=== PATIENT | male | born 1960 | race Caucasian/White ===

== ENCOUNTER → 2019-12-14 | Outpatient (CLI) | payer OTHER ==
[~2019-12-14] MED LIST: ACETAMINOPHEN325 M1 PO; ADVIL200 M1 PO; CONCERTA54 MG PO; SEROQUEL25 MG PO
[2019-12-14 15:43] LABS: BASOPHILS % 0.7 % (0.0-1.0); EOSINOPHILS # (AUTO) 0.1 (0.0-0.4); EOSINOPHILS % 1.7 % (0.0-6.0); HEMATOCRIT 37.7 % (38.2-49.6); HEMOGLOBIN 12.8 g/dL (14.0-18.0); LYMPHOCYTES # (AUTO) 1.2 (1.0-3.2); LYMPHOCYTES % 22.5 % (18.0-39.1); MEAN CORPUSCULAR HEMOGLOBIN 33.2 pg (28-32); MEAN CORPUSCULAR VOLUME 97.9 fL (81-99); MONOCYTES # (AUTO) 0.5 (0.2-0.8); MONOCYTES % 8.3 % (4.4-11.3); NEUTROPHILS # (AUTO) 3.6 (2.1-6.9); NEUTROPHILS % 66.4 % (38.7-80.0); PLATELET COUNT 236 x10e3/uL (140-360); RED BLOOD COUNT 3.85 x10e6/uL (4.3-5.7); RED CELL DISTRIBUTION WIDTH 15.1 % (11.7-14.4)
[2019-12-14 16:03] LABS: ALANINE AMINOTRANSFERASE 19 IU/L (0-55); ALBUMIN 3.9 g/dL (3.5-5.0); ALBUMIN/GLOBULIN RATIO 1.3 (0.8-2.0); ALKALINE PHOSPHATASE 46 IU/L (40-150); ANION GAP 12.2 mmol/L (8-16); BLOOD UREA NITROGEN 6 mg/dL (7-26); BUN/CREATININE RATIO 8 (6-25); CALCIUM 9.4 mg/dL (8.4-10.2); CARBON DIOXIDE 23 mmol/L (22-29); CHLORIDE 101 mmol/L (98-107); CREATININE, SERUM 0.78 mg/dL (0.72-1.25); EST GLOMERULAR FILTRATION RATE > 60 ML/MIN (60-); GLUCOSE 82 mg/dL (74-118); POTASSIUM 4.2 mmol/L (3.5-5.1); SODIUM 132 mmol/L (136-145)
== END ==
LOC: WCC 03:00
PROVIDERS: ATTEND Podiatrist Foot & Ankle Surgery
DX: T81.31XA Disruption of external operation (surgical) wound, not elsewhere classified, initial encounter (principal); S91.309A Unspecified open wound, unspecified foot, initial encounter; I73.89 Other specified peripheral vascular diseases; W45.0XXA Nail entering through skin, initial encounter
CPT/HCPCS: 36415; 80053; 83036; 84134; 85025; 85651; 86140

== ENCOUNTER → 2019-12-29 | Day surgery (SDC) | payer OTHER ==
[~2019-12-29] MED LIST changes: +BACITRACIN 50,000 UNIT VIAL ONE; +BUPIVACAINE HCL 0.5% INJ 30 ML VIAL INJ ONE; +CEFAZOLIN SOD 1 GM/NS 50ML 100 ML IV ONE; +DEXAMETHASONE SOD PHOS INJ 4 MG/ML VIAL ONE; +FENTANYL CITRATE/PF 100MCG/2 ML INJ IV ONE; +FENTANYL CITRATE/PF 100MCG/2 ML INJ ONE; +HYDROCODONE/APAP 5MG-325MG TAB ONE; +HYDROMORPHONE 1MG/1ML INJ ONE; +KETOROLAC TROMETHAMINE 30 MG/ML VIAL ONE; +LIDOCAINE HCL 2% LOCAL INJ 5 ML SDV VIAL INJ ONE; +MIDAZOLAM HCL 2 MG/2 ML VIAL INJ ONE; +NEOSTIGMINE 1 MG/ML 10ML VIAL ONE; +ONDANSETRON HCL INJ 2MG/ML 2ML 2 MG/ML VIAL ONE; +PROPOFOL IV EMULSION 10 MG/ML 20 ML VIAL ONE; -SEROQUEL25 MG PO; +SEVOFLURANE INHAL SOLN 250 ML PEN BTL ONE
--- OUTSIDE RECORDS SUMMARY | 2019-12-29 05:46 | XMS REPORT ---
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 Allergies, Adverse Reactions, Alerts Allergy Name Allergy Type Status Severity Reaction(s) Onset Date Inactive Date Treating Clinician Comments tramadol DA Active HI 2019-09-16 00:00:00 crayfish FA Active 2019-09-16 00:00:00 tramadol DA Active HI 2019-09-14 00:00:00 crayfish FA Active SV 2019-09-14 00:00:00 No Known Allergies DA Active U 2019-07-01 00:00:00 No Known Allergies DA Active U 2011-04-23 00:00:00 Medications This patient has no known medications. Encounters Start Date/Time End Date/Time Encounter Type Admission Type Attending Clinicians Care Facility Care Department Encounter ID 2019-10-02 10:20:00 2019-10-02 10:20:00 Emergency E [facility] 750 Results Test Description Test Time Test Comments Text Results Atomic Results Result Comments BASIC METABOLIC PANEL 2019-09-17 06:38:00 SODIUM (test code=NA) 141 mmol/L 136-145 POTASSIUM (test code=K) 4.4 mmol/L 3.5-5.1 CHLORIDE (test code=CL) 105.0 mmol/L 98-107 CARBON DIOXIDE (test code=CO2) 30.8 mmol/L 21-32 GLUCOSE (test code=GLU) 94 mg/dL 70-110 BLOOD UREA NITROGEN (test code=BUN) 9 mg/dL 7-18 GLOMERULAR FILTRATION RATE (test code=GFR) 98.9 >60 Unit of measure: mL/min/1.73 [id number] Range:Healthy Adults >90 mL/min/1.73 m2 For Chronic Kidney Disease: Stage II Mild Decrease in GFR 60-90 Stage III Moderate Decrease in GFR 30-59 Stage IV Severe Decrease in GFR 15-29 Stage V Kidney Failure <15 CREATININE (test code=CREAT) 0.80 mg/dL 0.55-1.30 CALCIUM (test code=CA) 8.3 mg/dL 8.2-10.1 BASIC METABOLIC [id number] 17:32:00* Test Item Value Reference Range Comments SODIUM (test code=NA) 138 mmol/L 136-145 POTASSIUM (test code=K) 4.9 mmol/L 3.5-5.1 CHLORIDE (test code=CL) 100.0 mmol/L 98-107 CARBON DIOXIDE (test code=CO2) 27.9 mmol/L 21-32 GLUCOSE (test code=GLU) 82 mg/dL 70-110 BLOOD UREA NITROGEN (test code=BUN) 10 mg/dL 7-18 GLOMERULAR FILTRATION RATE (test code=GFR) 117.4 >60 Unit of measure: mL/min/1.73 c2Tnwqywomx Range:Healthy Adults >90 mL/min/1.73 m2 For Chronic Kidney Disease: Stage II Mild Decrease in GFR 60-90 Stage III Moderate Decrease in GFR 30-59 Stage IV Severe Decrease in GFR 15-29 Stage V Kidney Failure <15 CREATININE (test code=CREAT) 0.69 mg/dL 0.55-1.30 CALCIUM (test code=CA) 9.6 mg/dL 8.2-10.1 - MRI C-SPINE W/O [id number] 08:56:00 FAX: Jakob Herrera MD [phone] [place]: St: [facility] FAX: Marlene Mcguire MD [phone] Name: ROBEL SOMERS [facility] [place] : 1960 Age/S: 58/M [address] [place] [address] Unit #: [id number] Loc: [place] [address] Phys: Marlene Chiang MD Acct: [id number] Dis Date: Status: ADM IN PHONE #: [phone] Exam Date: 07/02/2019827 FAX #: [phone] Reason: stroke vs radiculopathy EXAMS: CPT CODE: [id number] MRI C-SPINE W/O CONT 68966 Patient Name: ROBEL SOMERS : 1960; Age: 58 years y/o Male MR: [id number] Study: - MRI C-SPINE W/O CONT 07/02/2019 6:25 AM Ordering Physician: Marlene Chiang MD [facility] Indication: stroke vs radiculopathy Comparison: None STACY HNIQUE: Multiplanar noncontrast MR cervical spine was performed on a 1.5 T esla magnet. FINDINGS: ALIGNMENT AND GENERAL ASSESS MENT: Postoperative changes from anterior cervical discectomy and fusion a t C5-C6. No definite spinal cord signal abnormality. D ISC SPACES: C2-C3: No significant disc protrusion, spinal canal na rrowing, or neural foraminal narrowing. C3-C4: Posterior dis c osteophyte complex with mild bilateral foraminal stenosis C4-C5: Posterior disc osteophyte complex and ligamentum flavum buckling ca use severe spinal canal stenosis and moderate bilateral foraminal stenosis C5-C6: No significant disc protrusion, spinal canal narrowing, or neural foraminal narrowing. C6-C7: Posterior disc osteophyte complex without foraminal or canal stenosis. C7-T1: No si gnificant disc protrusion, spinal canal narrowing, or neural foraminal polly rowing. IMPRESSION: PAGE 1 Signed Report (CONTINUED) FAX: Jakob Herrera MD [phone] [place]: St: ADM FAX: Marlene Mcguire MD Name: ROBEL SOMERS [facility] : 1960 Age/S: 58/M [address] [place] [address] Unit #: [id number] Loc: [address] [address] [facility] s: Marlene Chiang MD Acct: [id number] Dis Date: Status: ADM IN PHONE #: [phone] Exam Date: 07/02/2019827 FAX #: [phone] Reason: stroke vs radiculopathy EXAMS: CPT CODE: [id number] MRI C-SPINE W/O CONT 10962 <Continued> 1. Severe degenerative spinal canal stenosis at C4-C5. 2. Moderate degenerative neural foraminal stenosis at the bilateral C4-C5 levels. 3. Postoperative changes from ACDF at C5-C6. SL: [id number] at 0856 Reported and signed by: Les Lovett M.D. CC: Jakob Herrera MD; Marlene Chiang MD Technologist: RT Dante(R)(C T)(MR) Trnnjrd Date/Time/By: 07/02/2019 (0856) : By: [email or web address] Orig Print D/T: S: 07/02/2019 (7883) PAGE 2 Signed Report - MRI BRAIN W/O [id number] 08:49:00 FAX: Jakob Herrera MD [phone] [place]: St: ADM FAX: Marlene Mcguire MD [phone] Name: ROBEL SOMERS [facility] : 1960 Age/S: 58/M [address] [place] [address] Unit #: [id number] Loc: G.646 [place] [address] Phys: Marlene Chiang MD Acct: [id number] Dis Date: Status: ADM IN PHONE #: [phone] Exam Date: 07/02/2019827 FAX #: [phone] Reason: stroke vs radiculopathy EXAMS: CPT CODE: [id number] MRI BRAIN W/O CONT 66304 Study: - MRI BRAIN W/O CONT 07/02/2019 6:25 AM Patient Name: ROBEL SOMERS MR: [id number] : 1960; Age: 58 years y/o Male Ordering Physician: Marlene Chiang MD Clinical Indication: stroke vs radiculopathy Comparison: CT brain without, July 01, 2019 TECHNIQUE: Multiplanar noncontrast MRI of the brain was performed on a 1.5 Toya magnet. FINDINGS: BRAIN PARENCHYMA: General: Mild diffuse age-appropriate cerebral atrophy associated with mild nonspecific abnormal signal in the subcortical white matter most consistent with old microangiopathic ischemic change. Ventricles: Normal size and appearance. Acute Findings: No evidence of acute intracranial hemorrhage, mass, mass effect, midline shift, or extra-axial fluid collection. Diffusion Weighted Images: No evidence of restricted diffusion to suggest acute or subacute ischemia. Gradient Images: No abnormal hypointense signal to suggest old hemorrhage. Midline Structures: The pituitary gland, c orpus callosum, and remaining midline structures are normal. VASCULATURE: Arterial: The major intracranial arterial flow voids are pre sent. Venous: The dural venous sinus flow voids are grossly normal. PARANASAL SINUSES: The visualized portions of the paranasal sinuses are clear. MASTOIDS: PAGE 1 Signed Re port (CONTINUED) FAX: Jakob Herrera MD [place]: St: [facility] FAX: Marlene Mcguire MD [phone] ---- Dell e: ROBEL SOMERS [facility] [place] : Age/S: 58/M [address] [place] [address] Unit #: [id number] Loc: [place] [address] Phys: Marlene Chiang Acct: [id number] Dis Coleman e: Status: ADM IN PHONE #: [phone] Exam Date: 07/02/2019827 FAX #: Reason: stroke vs radiculopathy EXAMS: CPT CODE: [id number] MRI BRAIN [place] [address] <Continued> Clear. SOFT TISSUES AND ORBITS: The visualized portions are normal. IMPRESSION: Negative noncontrast MRI of the brain without stroke, hemorrhage, mass, or mass effect. SL: [id number] at 0849 Reported and signed by: Les Lovett M.D. CC: Jakob Herrera MD; Marlene Chiang MD Technologist: Vance Brown RT(R)(CT)(MR) Trnscrd Date/Time/By: 07/02/2019 (0849) : By: [email or web address] Orig Print D/T: S: 07/02/2019 (0853) PAGE 2 Signed Report BASIC METABOLIC [id number] 04:46:00* Test Item Value Reference Range Comments SODIUM (test code=NA) 138 mEq/L 134-147 POTASSIUM (test code=K) 3.7 mEq/L 3.4-5.0 CHLORIDE (test code=CL) 105 mEq/L 100-108 CARBON DIOXIDE (test code=CO2) 26 mEq/L 21-33 ANION GAP (test code=GAP) 11 0-20 GLUCOSE (test code=GLU) 86 mg/dL 70-110 BLOOD UREA NITROGEN (test code=BUN) 10 mg/dL 7-18 GLOMERULAR FILTRATION RATE (test code=GFR) 115.8 90-95 Units of measure=ml/min/1.73 m2 CREATININE (test code=CREAT) 0.7 mg/dL 0.6-1.3 CALCIUM (test code=CA) 8.4 mg/dL 8.0-10.5 LIPID PROFILE (CORONARY RISK)2019-07-02 04:46:00* Test Item Value Reference Range Comments TRIGLYCERIDES (test code=TRIG) 64 mg/dL 40-150 CHOLESTEROL (test code=CHOL) 197 mg/dL <200 CHOLESTEROL/HDL RATIO (test code=CHOLHDL) 2.32 RATIO 3.43-4.97 RISK ASSOCIATED WITH CHOL/HDL RATIOS: RISK MALE FEMALE1/2 AVERAGE 3.43 3.27AVERAGE 4.97 4.442X AVERAGE 9.55 7.053X AVERAGE 23.39 11.04 NOTE THAT THE REFERENCE VALUE IS RELATEDTO RISK LEVELS RECOMMENDED BY THE NATL.HEART, LUNG, AND BLOOD INST. HDL CHOLESTEROL (test code=HDL) 85.0 mg/dL 32-72 LIPOPROTEIN LDL (test code=LDL) 91 mg/dL 0-100 <100 [id number] NEAR OPTIMAL/ABOVE [id number] HIGH>GL=314 VERY HIGH*Guidelines provided by the National Cholesterol EducationProgram Adult Treatment Panel III CBC W/AUTO [id number] 04:21:00* Test Item Value Reference Range Comments WHITE BLOOD CELL (test code=WBC) 5.33 x10 3/uL 4.5-11.0 RED BLOOD CELL (test code=RBC) 4.34 x10 6/uL 4.00-5.60 HEMOGLOBIN (test code=HGB) 14.6 g/dL 12.5-16.9 HEMATOCRIT (test code=HCT) 42.0 % 37.5-50.7 MEAN CELL VOLUME (test code=MCV) 96.8 fL 81.0-99.0 MEAN CELL HGB (test code=MCH) 33.6 pg 27.0-33.0 MEAN CELL HGB CONCETRATION (test code=MCHC) 34.8 g/dL 33.0-37.0 RED CELL DISTRIBUTION WIDTH CV (test code=RDW) 14.4 % 11.5-14.5 RED CELL DISTRIBUTION WIDTH SD (test code=RDW-SD) 51.8 fL 37.0-54.0 PLATELET COUNT (test code=PLT) 219 x10 3/uL 150-400 MEAN PLATELET VOLUME (test code=MPV) 9.3 fL 7.0-9.0 NEUTROPHIL % (test code=NT%) 58.0 % 56.0-77.0 IMMATURE GRANULOCYTE % (test code=IG%) 0.2 % 0.0-2.0 LYMPHOCYTE % (test code=LY%) 27.4 % 14.0-32.0 MONOCYTE % (test code=MO%) 10.3 % 4.8-9.0 EOSINOPHIL % (test code=EO%) 3.0 % 0.3-3.7 BASOPHIL % (test code=BA%) 1.1 % 0.0-2.0 NUCLEATED RBC % (test code=NRBC%) 0.0 % 0-0 NEUTROPHIL # (test code=NT#) 3.09 x10 3/uL 2.0-7.6 IMMATURE GRANULOCYTE # (test code=IG#) 0.01 x10 3/uL 0.00-0.03 LYMPHOCYTE # (test code=LY#) 1.46 x10 3/uL 1.0-3.8 MONOCYTE # (test code=MO#) 0.55 x10 3/uL 0.1-0.8 EOSINOPHIL # (test code=EO#) 0.16 x10 3/uL 0.0-0.2 BASOPHIL # (test code=BA#) 0.06 x10 3/uL 0.0-0.2 NUCLEATED RBC # (test code=NRBC#) 0.00 x10 3/uL 0.0-0.1 MANUAL DIFF REQUIRED (test code=MDIFF) NO - XR CHEST 1 [id number] 18:46:00 FAX: Navin Patel MD [phone] [place]: St: REG Name: ROBEL MOON [facility] : [birth year] Age/S: 58/M [address] [place] [address] Unit #: [id number] Loc: G[address] [place] [address] Phys: Navin Patel MD Acct: [id number] Dis Date: Status: REG ER PHONE #: [phone] Exam Date: 07/01/2019 1843 FAX #: [phone] Reason: stroke EXAMS: CPT CODE: [id number] XR CHEST 1 V 55383 CHEST, SINGLE VIEW H ISTORY: Stroke Comparison made to chest x-ray dated 04/23/11. FINDINGS: The lungs are clear. The heart size and pulm onary vascularity are within normal limits. There is an old left scapular fracture. IMPRESSION: No active process. SL:01 at 1846 Reported and signed by: Carlos Wiggins M.D. CC: Navin Patel MD Techno logist: RT Nhung(R) Trnscrd Date/Time /By: 07/01/2019 (1845) : By: Cathi Orig Print D/T: S: 07/01/2019 ( 1848) PAGE 1 Signed Report TROPONIN-I [id number] 18:36:00* Test Item Value Reference Range Comments TROPONIN-I RAPID (test code=TROPIRAP) 0.00 ng/mL 0.00-0.08 Performed by certified sorting machine operator at [facility] Negative: <=0.08 Positive: >=0.09An elevated troponin value alone is not sufficient todiagnose a myocardial infarction. Rather, the patient sclinical presentation (history, physical exam) and ECGshould be used in conjunction with troponin in thediagnostic evaluation of suspected myocardial infarction. Aserial sampling protocol is recommended to facilitate the identification of temporal changes in troponin levels characteristic of HI. CHEMISTRY 8 [id number] 18:31:00* Test Item Value Reference Range Comments ISTAT-SODIUM (test code=NAP) MMOL/L 134-147 ISTAT-POTASSIUM (test code=KP) MMOL/L 3.4-5.0 ISTAT-CHLORIDE (test code=CLP) MMOL/L 100-108 ISTAT CARBON DIOXIDE (test code=ISTAT-CO2) mmol/L 21-33 ISTAT CALCIUM IONIZED (test code=ISTAT-PAUL) MG/DL 1.12-1.32 ISTAT-GLUCOSE (test code=GLUP) MG/DL 70-110 ISTAT-BUN (test code=BUNP) MG/DL 7-18 BEDSIDE CREATININE (test code=CREATBED) MG/DL 0.6-1.3 GLOMERULAR FILTRATION RATE POC (test code=GFRBED) 82 ML/MIN CHEMISTRY 8 [id number] 18:31:00* Test Item Value Reference Range Comments ISTAT-SODIUM (test code=NAP) 138 MMOL/L 134-147 ISTAT-POTASSIUM (test code=KP) 3.4 MMOL/L 3.4-5.0 ISTAT-CHLORIDE (test code=CLP) 101 MMOL/L 100-108 Performed by certified sorting machine operator at [facility] ISTAT CARBON DIOXIDE (test code=ISTAT-CO2) 24.0 mmol/L 21-33 ISTAT CALCIUM IONIZED (test code=ISTAT-PAUL) 1.15 MG/DL 1.12-1.32 ISTAT-GLUCOSE (test code=GLUP) 98 MG/DL 70-110 ISTAT-BUN (test code=BUNP) 8 MG/DL 7-18 BEDSIDE CREATININE (test code=CREATBED) 1.0 MG/DL 0.6-1.3 GLOMERULAR FILTRATION RATE POC (test code=GFRBED) 82 ML/MIN - CT HEAD/BRAIN W/O [id number] 18:20:00 Name: ROBEL SOEMRS [facility] : 1960 Age/S: 58 / M [address] [place] [address] Unit #: [id number] Loc: [place] [address] Phys: Navin Patel MD Acct: [id number] Dis Date: Status: PRE ER PHONE #: [phone] Exam Date: 07/01/2019 1808 FAX #: [phone] Reason: numbness of left side Report Has Been Amended EXAMS: CPT CODE: [id number] CT HEAD/BRAIN W/O CONT 28785 Addendum - 07/01/2019 SIGNED 07/01/2019 ADDENDUM: [id number] CT/CTHDBRWO This report contains findings that may be critical to patient care. The findings were discussed with Navin Patel MD at 07/01/2019 6:20 PM SOA INTEGRATION DEVELOPER. at 1820 Reported and signed by: Emmanuel Elkins D.O. Report UNENHANCED CT HEAD INDICATION: Left-sided numbness, possible cerebrovascular accident. TECHNIQUE: Unenhanced CT was performed from the skull vertex to the foramen magnum with axial, coronal and sagittal reconstructions. CT imaging performed at this location utilizes radiation dose optimization t echnique which includes one or more of the followin) Automated exposur e control; 2) Adjustment of the mA and/or kV according to patient's size; 3) Use of iterative reconstruction techniques. DLP (mGy-cm): 420 COMPARISONS: None. FINDINGS: There is mucosal thickening of the frontal sinuses measuring up to 4 mm thick. There is no sinus fluid level. The mastoid air cells and middle ears appear c lear as visualized. There is no acute depressed skull fracture. There is a mild burden of atherosclerotic vascular calcification of the intracranial arteries. The cerebral ventricles are normal caliber. There is no cerebral mass effect, midline shift, intracranial hemorrhage or acute large vessel territory cerebral cortical edema. PAGE 1 Signed Report (CONTINUED) Name: ROBEL SOMERS [facility] : 1960 Age/S: 58 / M [address] [place] [address] Unit #: [id number] Loc: [place] [address] Phys: Navin Patel MD Acct: [id number] Dis Date: Status: PRE ER PHONE #: [phone] Exam Date: 07/01/2019 1808 FAX #: [phone] Reason: n umbness of left side Report Has Been Amended EXAMS: C PT CODE: [id number] CT HEAD/BRAIN W/O CONT 41473 <Continued> IMPRESSION: 1. There is no acute intracranial process. There is no acute cerebral edema or intracranial hemorrhage. The [place] Stroke Program Early CT Score (ASPECTS) is 10/10, normal. 2. There is mild bilateral frontal sinus disease. at 1817 Reported and signed by: Emmanuel Elkins D.O. CC: Navin Patel MD Technologist:Zainab Pina, RT(R)(CT) CTDI: DLP: Trnscb Date/Time: 07/01/2019 (1816) [email or web address] Orig Print D/T: S: 07/01/2019 (1820) PAGE 2 Signed Report - CT HEAD/BRAIN W/O [id number] 18:17:00 Name: ROBEL SOMERS [facility] : 1960 Age/S: 58 / M [address] [place] [address] Unit #: [id number] Loc: [place] [address] Phys: Muriel Patel MD Acct: [id number] Di s Date: Status: PRE ER PHONE #: [phone] Exam Date: 07/01/20191807 FAX #: Reason: numbness of left side EXAMS: CPT CODE: [id number] CT HEAD/BRAIN W/O CONT [address] HEAD INDICATION: Left-sided numbness, possible cerebrovascular accident. TECHNIQUE: Unenhanced CT was performed from the skull vertex to the foramen magnum with axial, coronal and sagittal reconstructions. CT imaging performed at this location utilizes radiation dose optimization te nique which includes one or more of the followin) Automated exposure control; 2) Adjustment of the mA and/or kV according to patient's size; 3) Use of iterative reconstruction techniques. DLP (mGy-cm): 420 COMPARISONS: None. FINDINGS: There is mucosal t hickening of the frontal sinuses measuring up to 4 mm thick. There is no sinus fluid level. The mastoid air cells and middle ears appear cl ear as visualized. There is no acute depressed skull fracture. There is a mild burden of atherosclerotic vascular calcification of the intracranial arteries. The cerebral ventricles are normal caliber. There is no cerebral mass effect, midline shift, intracranial hemorrhage or acute large vessel territory cerebral cortical edema. IM PRESSION: 1. There is no acute intracranial process. Ther e is no acute cerebral edema or intracranial hemorrhage. The [place] Str pau Program Early CT Score (ASPECTS) is 10/10, normal. 2. There is mild bilateral frontal sinus disease. Electronically Signed by Marva Elkins on 0 07/01/2019 at 1817 Reported and signed by: Lior Elkins D.O. PAGE 1 Signed Report (CONTINUED) Name: ROBEL SOMERS [facility] Nicole Oscar : 1960 Age/S: 58 / M [address] [place] [address] Blvd Unit #: [id number] Loc: [place] [address] Phys: Navin Patel MD Acct: [id number] Dis Date: Status: PRE ER PHONE #: [phone] Exam Date: 07/01/2019 1808 FAX #: [phone] Reason: numbness of left side EXAMS: CPT CODE: [id number] HEAD/BRAIN W/O CONT 83565 <Continued > CC: Navin Patel MD Technologist:RT Felipa(R)(CT) CTDI: DLP: Trnscb Date/Time: 07/01/2019 (1816) [email or web address] Orig Print D/T: S: 07/01/2019 (1819) PAGE 2 Signed Report PROTHROMBIN [id number] 18:16:00* Test Item Value Reference Range Comments PROTHROMBIN TIME PATIENT (test code=PTP) 10.7 SECONDS 9.3-12.9 INTERNATIONAL NORMAL RATIO (test code=INR) 1.0 0.8-1.2 TARGET INR BY INDICATION Indication INR1. Prophylaxis of venous thrombosis 2.0 - 3.0 (orthopedic surgery), Prophylaxis of venous thrombosis (other than high-risk surgery), Treatment of Deep Vein Thrombosis/Pulmonary Embolism, Prevention of systemic embolism - Tissue heart valves, Acute Myocardial Infarction (to prevent systemic embolism), Valvular heart disease, Atrial Fibrillation, Bileaflet mechanical valve in aortic position.2. Mechanical prosthetic valves (high risk), 2.5 - 3.5 Presence of Lupus Anticoagulant or Antiphospholipid Antibodies, Prevention of systemic embolism - Acute Myocardial Infarction (to prevent recurrent infarct). THROMBOPLASTIN TIME [id number] 18:16:00* Test Item Value Reference Range Comments THROMBOPLASTIN TIME PARTIAL (test code=PTT) 35.8 Seconds 25.0-39.5 Therapeutic Range: 50.4 - 88.3 Seconds Effective 03/17/2019 [id number] 18:11:00* Test Item Value Reference Range Comments GLUBED (test code=GLUBED) 102 MG/DL 70-110 Performed by certified sorting machine operator at [facility] CBC W/O [id number] 18:08:00* Test Item Value Reference Range Comments WHITE BLOOD CELL (test code=WBC) 7.18 x10 3/uL 4.5-11.0 RED BLOOD CELL (test code=RBC) 4.85 x10 6/uL 4.00-5.60 HEMOGLOBIN (test code=HGB) 16.1 g/dL 12.5-16.9 HEMATOCRIT (test code=HCT) 46.9 % 37.5-50.7 MEAN CELL VOLUME (test code=MCV) 96.7 fL 81.0-99.0 MEAN CELL HGB (test code=MCH) 33.2 pg 27.0-33.0 MEAN CELL HGB CONCETRATION (test code=MCHC) 34.3 g/dL 33.0-37.0 RED CELL DISTRIBUTION WIDTH CV (test code=RDW) 14.6 % 11.5-14.5 RED CELL DISTRIBUTION WIDTH SD (test code=RDW-SD) 52.4 fL 37.0-54.0 PLATELET COUNT (test code=PLT) 257 x10 3/uL 150-400 MEAN PLATELET VOLUME (test code=MPV) 9.4 fL 7.0-9.0
[2019-12-29 10:10] VITALS: BP 131/59
--- NOTE | 2019-12-29 12:37 | Operative Report ---
DATE OF PROCEDURE: 12/29/2019 SURGEON: Zena Mantilla DPM FACILITIES MAINTENANCE ENGINEER: None. PREOPERATIVE DIAGNOSIS: Ulcer to bone left foot, measures about 7 cm x 2 cm x 1 cm. POSTOPERATIVE DIAGNOSIS: Ulcer to bone left foot, measures about 7 cm x 2 cm x 1 cm. PROCEDURES: 1. Excisional debridement to include capsule of ulcer, left foot. 2. Application of human allograft. 3. Application of wound VAC. HEMOSTASIS: None. ESTIMATED BLOOD LOSS: Less than 10 mL. PATHOLOGY: Deep cultures and sensitivity. ANESTHESIA: General anesthetic with a local block. COMPLICATIONS: None. CONDITION: Stable. PROCEDURE IN DETAIL: Under mild sedation, the patient was brought to the operating room and placed on the operating table in supine position. Following IV sedation, anesthesia was obtained with a general anesthetic. At this point, the left foot was scrubbed, prepped, and draped in the usual aseptic manner. The area was then lowered to the table. Attention was directed to the dorsal aspect of the left foot, where utilizing a combination of 15 blade, rongeur, and curette, all excisional debridement was performed. All nonviable tissue was removed to include capsule down to clean viable bleeding tissue. At this point, the area was then copiously irrigated with pressure irrigated. Cultures and sensitivity were taken of the area. AmnioFill was used to fill the wound 2000 mg. The lot number is [id number], expires 09/01/2023. It was then secured utilizing Adaptic and 4-0 nylon. A clean dressing was then applied. A wound VAC will be applied in PACU. The patient tolerated the procedure and anesthesia well without complications, was transported to recovery room with a wound VAC will be applied. He is to be nonweightbearing to the left foot to follow up with me in Wound Care to leave the wound VAC intact and to call the office if any questions, concerns, or new problems arise. Zena Mantilla DPM ER/MODL /[id number]
--- NOTE | 2019-12-29 15:10 | NUR ---
WOUND CARE CONSULT FOR POST SURGICAL VAC APPLICATION TO LEFT FOOT DEBRIDEMENT AND GRAFT SITE PATIENT PRE MEDICATED WITH MINIMAL C/O PAIN OR DISCOMFORT TIARA SKIN TO LEFT FOOT SURGICAL SITE PREPPED AND PROTECTED GRAFT SITE 3CM X2CM COVERED WITH ADAPTIC OJ BLACK FOAM PLACED SEAL CREATED AT 120MMHG NO LEAK DETECTED NO C/O PAIN OR DISCOMFORT OR BLEEDING TO SITE NOTED PATIENT TO FOLLOW UP WITH DR CESAR IN [facility] NEXT WEEK Addendum: 12/29/19 at 1515 by Kade Negron RN Amended: Links added.
== END | disposition home or self-care (01) ==
LOC: OR 05:43
PROVIDERS: ATTEND Podiatrist Foot & Ankle Surgery
DX: L97.529 Non-pressure chronic ulcer of other part of left foot with unspecified severity (principal); M86.9 Osteomyelitis, unspecified; F17.210 Nicotine dependence, cigarettes, uncomplicated; Z88.6 Allergy status to analgesic agent; Z91.013 Allergy to seafood; Z01.810 Encounter for preprocedural cardiovascular examination
CPT/HCPCS: 11044; 87071; 87075; 87205; 93005; 97605; J0690; J1100; J1170; J1885; J2001; J2250; J2405; J2704; J3010; J2710

== ENCOUNTER → 2020-01-04 | Outpatient (CLI) | payer OTHER ==
[~2020-01-04] MED LIST changes: -BACITRACIN 50,000 UNIT VIAL ONE; -BUPIVACAINE HCL 0.5% INJ 30 ML VIAL INJ ONE; -CEFAZOLIN SOD 1 GM/NS 50ML 100 ML IV ONE; -DEXAMETHASONE SOD PHOS INJ 4 MG/ML VIAL ONE; -FENTANYL CITRATE/PF 100MCG/2 ML INJ IV ONE; -FENTANYL CITRATE/PF 100MCG/2 ML INJ ONE; -HYDROCODONE/APAP 5MG-325MG TAB ONE; -HYDROMORPHONE 1MG/1ML INJ ONE; -KETOROLAC TROMETHAMINE 30 MG/ML VIAL ONE; -LIDOCAINE HCL 2% LOCAL INJ 5 ML SDV VIAL INJ ONE; -MIDAZOLAM HCL 2 MG/2 ML VIAL INJ ONE; -NEOSTIGMINE 1 MG/ML 10ML VIAL ONE; -ONDANSETRON HCL INJ 2MG/ML 2ML 2 MG/ML VIAL ONE; -PROPOFOL IV EMULSION 10 MG/ML 20 ML VIAL ONE; -SEVOFLURANE INHAL SOLN 250 ML PEN BTL ONE
== END ==
LOC: WCC 16:07
PROVIDERS: ATTEND Podiatrist Foot & Ankle Surgery
DX: T81.31XA Disruption of external operation (surgical) wound, not elsewhere classified, initial encounter (principal); S91.309A Unspecified open wound, unspecified foot, initial encounter; W45.0XXA Nail entering through skin, initial encounter; I73.89 Other specified peripheral vascular diseases

== ENCOUNTER → 2020-01-07 | Outpatient (CLI) | payer OTHER | LOC: WCC 15:51 | PROVIDERS: ATTEND Podiatrist Foot & Ankle Surgery | DX: T81.31XA Disruption of external operation (surgical) wound, not elsewhere classified, initial encounter (principal); S91.309A Unspecified open wound, unspecified foot, initial encounter; W45.0XXA Nail entering through skin, initial encounter; I73.89 Other specified peripheral vascular diseases ==

== ENCOUNTER → 2020-01-11 | Outpatient (CLI) | payer OTHER ==
[~2020-01-11] MED LIST changes: +SEROQUEL25 MG PO
== END ==
LOC: WCC 15:36
PROVIDERS: ATTEND Podiatrist Foot & Ankle Surgery
DX: T81.31XA Disruption of external operation (surgical) wound, not elsewhere classified, initial encounter (principal); S91.309A Unspecified open wound, unspecified foot, initial encounter; I73.89 Other specified peripheral vascular diseases; W45.0XXA Nail entering through skin, initial encounter

== ENCOUNTER → 2020-01-18 | Outpatient (CLI) | payer OTHER ==
[~2020-01-18] MED LIST changes: -SEROQUEL25 MG PO
== END ==
LOC: WCC 15:04
PROVIDERS: ATTEND Podiatrist Foot & Ankle Surgery
DX: T81.31XA Disruption of external operation (surgical) wound, not elsewhere classified, initial encounter (principal); S91.309A Unspecified open wound, unspecified foot, initial encounter; I73.89 Other specified peripheral vascular diseases; W45.0XXA Nail entering through skin, initial encounter

== ENCOUNTER → 2020-01-26 | Day surgery (SDC) | payer OTHER ==
[~2020-01-26] MED LIST changes: +BACITRACIN 50,000 UNIT VIAL ONE; +BUPIVACAINE HCL 0.5% INJ 30 ML VIAL INJ ONE; +CEFAZOLIN SOD 1 GM/NS 50ML 100 ML IV ONE; +DEXAMETHASONE SOD PHOS INJ 4 MG/ML VIAL ONE; +EPHEDRINE SULFATE INJ 50 MG/ML VIAL ONE; +FENTANYL CITRATE/PF 100MCG/2 ML INJ ONE; +HYDROMORPHONE 1MG/1ML INJ ONE; +LIDOCAINE HCL 2% LOCAL INJ 5 ML SDV VIAL INJ ONE; +MIDAZOLAM HCL 2 MG/2 ML VIAL ONE; +ONDANSETRON HCL INJ 2MG/ML 2ML 2 MG/ML VIAL ONE; +PROPOFOL IV EMULSION 10 MG/ML 20 ML VIAL ONE; +SEROQUEL25 MG PO; +SEVOFLURANE INHAL SOLN 250 ML PEN BTL ONE
[2020-01-26 12:50] VITALS: BP 141/76
--- NOTE | 2020-01-26 18:58 | Operative Report ---
DATE OF PROCEDURE: 01/26/2020 SURGEON: Zena Mantilla DPM ESCALATION ENGINEER: None. ANESTHESIA: General anesthetic with a local block consisting of 10 mL of 0.5 Marcaine plain. HEMOSTASIS: None. ESTIMATED BLOOD LOSS: Less than 5 mL. MATERIALS: AmnioFill 2000 mg, expires 09/01/2023, lot number is [id number] from [employer]. COMPLICATIONS: None. CONDITION: Stable. PROCEDURE IN DETAIL: Under mild sedation, the patient was brought to the operating room, placed on the operating table in supine position. Following IV sedation, anesthesia was obtained with a general anesthetic. At this point, the left foot scrubbed, prepped, and draped in the usual aseptic manner. The leg was lowered to the table. Excisional debridement to include the capsule. Attention was directed to the incision at the left foot where the wound was visualized. Utilizing a combination of a curette and rongeur, excisional debridement was performed of nonviable tissue. At this point, it was noted to be able he had 50% more granular tissue as before the previous surgery. Once all nonviable tissue was removed, the area was then flushed with copious irrigation with 3000 mL and bacitracin. The area was then packed with AmnioFill 2000 mg. It was secured utilizing Adaptic and a 4-0 nylon. The dressing was then applied consisting of 4x4s, Kerlix, and an Kevin bandage. Please note that the patient tolerated the procedure and anesthesia well without complications, was transported to recovery room with vital signs stable and vascular status unchanged. The patient will be discharged home when he meets criteria after the wound VAC is applied in PACU. He is to be nonweightbearing to the foot and elevate the foot while at rest and to follow up with me in the office. PROCEDURES: 1. Excisional debridement to include capsule of the left foot ulcer. 2. Application of AmnioFill graft 2000 mg. 3. Application of a wound VAC. Zena Mantilla DPM ER/MODL /[id number]
== END | disposition home or self-care (01) ==
LOC: OR 09:13
PROVIDERS: ATTEND Podiatrist Foot & Ankle Surgery
DX: M86.9 Osteomyelitis, unspecified (principal); L97.529 Non-pressure chronic ulcer of other part of left foot with unspecified severity; R00.1 Bradycardia, unspecified; F17.210 Nicotine dependence, cigarettes, uncomplicated; Z88.6 Allergy status to analgesic agent; Z88.8 Allergy status to other drugs, medicaments and biological substances
CPT/HCPCS: 15275; 28090; 93005; J0690; J1100; J1170; J2001; J2250; J2405; J2704; J3010; Q4100

== ENCOUNTER → 2020-01-28 | Outpatient (CLI) | payer OTHER ==
[~2020-01-28] MED LIST changes: -BACITRACIN 50,000 UNIT VIAL ONE; -BUPIVACAINE HCL 0.5% INJ 30 ML VIAL INJ ONE; -CEFAZOLIN SOD 1 GM/NS 50ML 100 ML IV ONE; -DEXAMETHASONE SOD PHOS INJ 4 MG/ML VIAL ONE; -EPHEDRINE SULFATE INJ 50 MG/ML VIAL ONE; -FENTANYL CITRATE/PF 100MCG/2 ML INJ ONE; -HYDROMORPHONE 1MG/1ML INJ ONE; -LIDOCAINE HCL 2% LOCAL INJ 5 ML SDV VIAL INJ ONE; -MIDAZOLAM HCL 2 MG/2 ML VIAL ONE; -ONDANSETRON HCL INJ 2MG/ML 2ML 2 MG/ML VIAL ONE; -PROPOFOL IV EMULSION 10 MG/ML 20 ML VIAL ONE; -SEVOFLURANE INHAL SOLN 250 ML PEN BTL ONE
== END ==
LOC: WCC 01-25 14:51
PROVIDERS: ATTEND Family Medicine Adult Medicine
DX: T81.31XA Disruption of external operation (surgical) wound, not elsewhere classified, initial encounter (principal); S91.309A Unspecified open wound, unspecified foot, initial encounter; I73.89 Other specified peripheral vascular diseases; W45.0XXA Nail entering through skin, initial encounter

== ENCOUNTER → 2020-02-01 | Outpatient (CLI) | payer OTHER | LOC: WCC 14:37 | PROVIDERS: ATTEND Podiatrist Foot & Ankle Surgery | DX: T81.31XA Disruption of external operation (surgical) wound, not elsewhere classified, initial encounter (principal); S91.309A Unspecified open wound, unspecified foot, initial encounter; W45.0XXA Nail entering through skin, initial encounter; I73.89 Other specified peripheral vascular diseases ==

== ENCOUNTER → 2020-02-08 | Outpatient (CLI) | payer OTHER | LOC: WCC 13:48 | PROVIDERS: ATTEND Podiatrist Foot & Ankle Surgery | DX: T81.31XA Disruption of external operation (surgical) wound, not elsewhere classified, initial encounter (principal); S91.309A Unspecified open wound, unspecified foot, initial encounter; I73.89 Other specified peripheral vascular diseases; W45.0XXA Nail entering through skin, initial encounter ==

== ENCOUNTER → 2020-03-07 | Outpatient (CLI) | payer OTHER ==
[~2020-03-07] MED LIST changes: +LIDOCAINE/PRILOCAINE 2.5-2.5% KIT ONE
== END ==
LOC: WCC 16:10
PROVIDERS: ATTEND Podiatrist Foot & Ankle Surgery
DX: T81.31XA Disruption of external operation (surgical) wound, not elsewhere classified, initial encounter (principal); S91.309A Unspecified open wound, unspecified foot, initial encounter; I73.89 Other specified peripheral vascular diseases; W45.0XXA Nail entering through skin, initial encounter

== ENCOUNTER → 2020-03-21 | Outpatient (CLI) | payer OTHER ==
[~2020-03-21] MED LIST changes: -LIDOCAINE/PRILOCAINE 2.5-2.5% KIT ONE
== END ==
LOC: WCC 13:23
PROVIDERS: ATTEND Podiatrist Foot & Ankle Surgery
DX: T81.31XA Disruption of external operation (surgical) wound, not elsewhere classified, initial encounter (principal); S91.309A Unspecified open wound, unspecified foot, initial encounter; I73.89 Other specified peripheral vascular diseases; W45.0XXA Nail entering through skin, initial encounter

== ENCOUNTER → 2020-04-11 | Outpatient (CLI) | payer OTHER | LOC: WCC 14:02 | PROVIDERS: ATTEND Podiatrist Foot & Ankle Surgery | DX: T81.31XA Disruption of external operation (surgical) wound, not elsewhere classified, initial encounter (principal); S91.309A Unspecified open wound, unspecified foot, initial encounter; I73.89 Other specified peripheral vascular diseases; W45.0XXA Nail entering through skin, initial encounter ==

== ENCOUNTER → 2020-05-02 | Outpatient (CLI) | payer OTHER | LOC: WCC 14:17 | PROVIDERS: ATTEND Podiatrist Foot & Ankle Surgery | DX: T81.31XA Disruption of external operation (surgical) wound, not elsewhere classified, initial encounter (principal); S91.309A Unspecified open wound, unspecified foot, initial encounter; I73.89 Other specified peripheral vascular diseases; W45.0XXA Nail entering through skin, initial encounter ==